=== PATIENT | female | born 1930 | race Hispanic/Latino ===

== ENCOUNTER → 2016-10-29 | Outpatient (CLI) | payer OTHER | LOC: MOB LAB 08:30 | DX: N39.0 Urinary tract infection, site not specified (principal); R30.0 Dysuria | CPT/HCPCS: 87077; 87088; 87186 ==

== ENCOUNTER 2016-12-21 21:18 | Emergency (ER) | payer OTHER ==
--- NOTE | 2016-12-21 21:33 | PDOC ---
Abdomen/Flank HPI - General Chief Complaint: Abdomen Pain Stated Complaint: N/V ABDOMINAL PAIN Date Seen by Provider: 12/21/16 Time Seen by Provider: 21:25 Source: POSITIVE: Patient Exam Limitations: POSITIVE: No limitations Nurse's Notes Reviewed & Considered: Yes - History of Present Illness Initial Comments: Pleasant slightly confused 86-year-old female who comes in today with a chief complaint of epigastric pain, nausea, and not feeling well. Patient is presently here in [facility]. She lives in [place] and has been here for approximately a month and a half. Yesterday she was normal and went for a long walk with a friend in the sun. Today she has had the above noted symptoms. She denies any headache, no sore throat, no chest pain or shortness of breath, no diarrhea, no hematuria or dysuria, no rashes. Her niece who accompanies her states that she is slightly confused. Body Location Affected: REPORTS: Abdomen Timing: REPORTS: Abrupt Duration: <24 hours Severity: Mild Quality: REPORTS: Aching, Cramping, "Pain" Abdominal Pain Onset Location: REPORTS: Epigastric Abdominal Pain Radiation: REPORTS: Periumbilical, Chest Context: REPORTS: None Modifying Factors: improves with: Nothing Associated Symptoms: REPORTS: Nausea, Vomiting Similar Symptoms Previously: No Recent Care Received: REPORTS: Denies Any Prior Injuries Related to Current Complaint?: No - Patient Home Medications Home Medications: Home Medications Aspirin [Aspir 81] 81 mg PO DAILY tab 10/29/16 Cholecalciferol (Vitamin D3) [Vitamin D3] 1 tab PO DAILY tab 10/29/16 Insulin Glargine Inj [Lantus Inj] 10 unit SUBCUT BEDTIME 10/29/16 Lisinopril 1 tab PO DAILY tab 10/29/16 Pantoprazole Sodium 1 tab PO DAILY tab 10/29/16 - Patient Allergies Allergies/Adverse Reactions: Allergies Allergy/AdvReac Type Severity Reaction Status Date / Time metformin Allergy HIVES Verified 12/21/16 21:32 ROS - Limitations ROS Limitations: No Limitations Constitution: REPORTS: Denies Symptoms Cardiovascular: REPORTS: Denies Cardiac Symptoms Respiratory: REPORTS: Denies Resp Symptoms Neurological: REPORTS: Confusion Gastrointestinal: REPORTS: Abdominal Pain, Nausea, Vomitting Endocrine: REPORTS: Denies Symptoms Musculoskeletal: REPORTS: Denies MS Symptoms Genitourinary: REPORTS: Denies Symptoms Eyes: REPORTS: Denies Symptoms ENT: REPORTS: Denies Symptoms Skin: REPORTS: Denies Skin Symptoms Lympathic: REPORTS: Denies Lympathic Symptoms Immunologic: POSITIVE: Denies Symptoms Psychiatric: POSITIVE: Denies Psych Symptoms Abdominal/Flank Pain PE - General Appearance General Appearance: POSITIVE: Alert, Cooperative, No Acute Distress, No Evidence of Trauma - HEENT HEENT: POSITIVE: Head Inspection Nml, Eyes Inspection Nml, Ears Inspection Nml, Nose Inspection Nml, Oral/Dental Inspect. Nml, Pharynx Inspect. Nml, PERRL, EOMI - Neck Neck: POSITIVE: Normal Inspection, No Apparent Injury - Respiratory Respiratory: POSITIVE: No Respiratory Distress, Breath Sounds Normal, Chest Non- Tender - Cardiovascular Cardiovascular: POSITIVE: Regular Rate and Rhythm, Heart Sounds Normal, Equal Pulses, Strong Pulses - Abdomen Abdomen: Soft: (All Quadrants), Normal Bowel Sounds: (All Quadrants), No Splenomegaly: (All Quadrants), No Hepatomegaly: (All Quadrants), No Guarding: ( All Quadrants), No Rebound: (All Quadrants), No Palpable Pulse: (All Quadrants) , No Palpabale Mass: (All Quadrants), No Distention: (All Quadrants), No Rigidity: (All Quadrants), Tenderness Noted: (LUQ), (RUQ) (epigastrium) - Back Back: POSITIVE: Normal Inspection - Skin Skin: POSITIVE: Intact, Normal For Race, Warm, Dry, No Rash - Extremities Extremity: Non-Tender: (All Extremities), Normal ROM: (All Extremities), Normal Inspection: (All Extremities) - Neurological Neurological: POSITIVE: Oriented X3, Motor Normal, Sensation Normal Abdomen Progress - Results Reviewed by me Xrays/CTs/US Reviewed by me: Yes Discussed with Radiologist: Yes Lab Results Reviewed: Yes Lab Results:: Laboratory Results 12/21/16 12/21/16 Range/Units 21:35 22:55 WBC 11.40 H (4.8-10.8) 10^3/uL RBC 3.63 L (4.20-5.40) 10^6/uL Hgb 11.1 L (12.0-16.0) g/dL Hct 31.8 L (37.0-47.0) % MCV 87.6 (81-99) FL MCH 30.6 (27-31) PG MCHC 34.9 (33-37) g/dL RDW Std Deviation 38.9 L (39-50) fL RDW Coeff of [place] 12.6 (11.5-14.5) % Plt Count 192 (140-350) 10*3/uL MPV 9.5 (7.4-12.2) FL Immature Gran % (Auto) 0.4 (0-5) % Neut % (Auto) 80.7 H (50-80) % Lymph % (Auto) 9.4 L (10-50) % [place] % (Auto) 8.1 (5-15) % Eos % (Auto) 1.0 (0-8) % Baso % (Auto) 0.4 (0-1) % Immature Gran # (Auto) 0.04 10*3/UL Neut # (Auto) 9.21 10*3/UL Lymph # (Auto) 1.07 10*3/uL [place] # (Auto) 0.92 H (0.3-0.8) 10*3/UL Eos # (Auto) 0.11 10*3/UL Baso # (Auto) 0.05 10*3/UL WBC Morphology Comment Normal morphology (NORM) Plt Morphology Comment Normal morphology (NORM) RBC Morph Comment Normal morphology (NORM) Sodium 131 L (135-145) meq/L Potassium 4.5 (3.8-5.2) meq/L Chloride 102 (98-112) meq/L Carbon Dioxide 20 L (23-33) meq/L Anion Gap 9 (5-20) BUN 18 (7-22) mg/dL Creatinine 0.8 (0.50-1.20) mg/dL Estimated GFR (>60 ml/min/1.73m(2)) BUN/Creatinine Ratio 22.50 H (6-20) Glucose 238 H (78-110) mg/dL Calculated Osmolality 281.0 (267-292) mOsm/kg Lactic Acid 1.5 (0.70-2.10) MMOL/L Calcium 8.9 (8.7-10.7) mg/dL Magnesium 1.6 (1.6-2.4) mg/dL Total Bilirubin 0.8 (0.3-1.2) mg/dL AST 27 (8-39) IU/L ALT 20 (9-52) IU/L Alkaline Phosphatase 194 H (38-126) IU/L Troponin I < 0.012 (< 0.040) ng/mL C-Reactive Protein 5.0 H (0.0-0.9) mg/dL Total Protein 7.4 (6.1-8.0) g/dL Albumin 3.4 L (3.5-4.8) g/dL Globulin 4.0 (2.50-4.10) g/dL Albumin/Globulin Ratio 0.80 L (1.3-2.0) mg/g Lipase 126 (23-300) IU/L Ur Collection Type Clean catch urine Urine Color Yellow Urine Clarity Slightly cloudy (CLEAR) Urine pH 5.0 (5.0-8.5) Ur Specific [place] 1.015 (1.005-1.030) U Specif Grav (Refrac) 1.015 Urine Protein Negative (NEG) mg/dl Urine Glucose (UA) Negative (NEG) mg/dL Urine Ketones Trace (NEG) Urine Occult Blood Small H (NEG) Urine Nitrate Negative (NEG) Urine Bilirubin Small (NEG) Urine Urobilinogen 0.2 (0.2) EU/dL Ur Leukocyte Esterase Moderate (NEG) Urine RBC 3-5 (NONE) /hpf Urine WBC 15-20 (NONE) Ur Squamous Epith Cells Few (NONE) Ur Renal Epithelial Cell None (NONE) Urine Crystals None Urine Bacteria Few (NONE) Urine Casts None (NONE) Urine Mucus Moderate (NONE) Urine Trichomonas None (NONE) Urine Yeast None (NONE) Ur Culture Indicated? Culture set Urine Opiates Screen Negative (NEG) Ur Buprenorphine Negative (NEG) Ur Oxycodone Screen Negative (NEG) Urine Methadone Screen Negative (NEG) Ur Propoxyphene Screen Negative (NEG) Barbiturate Screen Negative (NEG) U Tricyclic Antidepress Negative (NEG) Phencyclidine Screen Negative (NEG) Amphetamines Screen Negative (NEG) U Methamphetamines Scrn Negative (NEG) Benzodiazepines Screen Negative (NEG) Cocaine Screen Negative (NEG) U Marijuana (THC) Screen Negative (NEG) Serum Alcohol < 10 (0-10) mg/dL - Patient's Progress Pain Medication Addressed: POSITIVE: No Re-examine Time: 00:47 Status: POSITIVE: Improved MDM / ED Course: Patient was examined, IV started, blood drawn and sent to the lab for studies, radiographic examinations were obtained. Patient received normal saline, Rocephin. Findings: CBC shows elevation of her white count to 11, slight anemia with hemoglobin 11. Comprehensive metabolic panel shows sodium of 131. C Reactive protein is elevated at 5. Urinalysis shows leukocyte esterase present. Alcohol is negative. Drug screen is negative. Chest x-ray shows pleural effusion but no focal consolidated pneumonia. Assessment: Urinary tract infection. Plan: Discharge home, antibiotics prescribed his Keflex. She is to follow-up with her primary care physician. - Consult Counseled: POSITIVE: Patient, Family, RE: Lab Results, RE: Radiology Results, RE : DX, RE: Need for F/U Patient Care Time - Estimated PCT Patient Care Time (In Minutes): 45 Vital Signs - Recent Vital Signs Vital Signs: Vital Signs (Last 8 hours) Temp Pulse Resp BP Pulse Ox 12/21/16 21:20 98.6 F 90 18 124/90 95 - VS Reviewed Vital Signs Reviewed: Yes Discharge Clinical Impression: Urinary tract infection Discharge Disposition: Discharged to Home Condition: Stable Patient Instructions Given at Discharge: Urinary Tract Infection in Women (ED)
--- NOTE | 2016-12-21 21:42 | EKG ---
[address] [place] [address] Measurements Intervals [place] Rate: 87 P: 26 TX: 162 QRS: -58 QRSD: 89 T: 32 QT: 368 QTc: 412 Interpretive Statements SINUS RHYTHM LEFT ANTERIOR FASCICULAR BLOCK [QRS AXIS <= -45, QR IN I, RS IN II] WARNING: DATA QUALITY MAY AFFECT INTERPRETATION No previous ECG available for comparison Electronically Signed On 12-23-16 08:05:32 MDT by Joseph Gardiner MD [email or web address]
[2016-12-21 21:46] LABS: HEMATOCRIT 31.8 % (37.0-47.0); HEMOGLOBIN 11.1 g/dL (12.0-16.0); MEAN CORPUSCULAR VOLUME 87.6 FL (81-99); RED BLOOD COUNT 3.63 10^6/uL (4.20-5.40)
[2016-12-21 21:47] LABS: BASOPHILS # (AUTO) 0.05 10*3/UL; BASOPHILS % (AUTO) 0.4 % (0-1); EOSINOPHILS # (AUTO) 0.11 10*3/UL; LYMPHOCYTES # (AUTO) 1.07 10*3/uL; MEAN CORPUSCULAR HEMOGLOBIN 30.6 PG (27-31); MEAN CORPUSCULAR HGB CONC 34.9 g/dL (33-37); MEAN PLATELET VOLUME 9.5 FL (7.4-12.2); MONOCYTES # (AUTO) 0.92 10*3/UL (0.3-0.8); MONOCYTES % (AUTO) 8.1 % (5-15); NEUTROPHILS # (AUTO) 9.21 10*3/UL; NEUTROPHILS % (AUTO) 80.7 % (50-80); PLATELET MORPHOLOGY COMMENT NORMAL MORPHOLOGY (NORM); RBC MORPHOLOGY COMMENT NORMAL MORPHOLOGY (NORM); WBC MORPHOLOGY COMMENT NORMAL MORPHOLOGY (NORM)
[2016-12-21 21:48] VITALS: RESP 18; TEMP 98.6
[2016-12-21] MEDS: Sodium Chloride 0.9% 1,000 ML PRIMARY IV ONE (21:49)
[2016-12-21] MEDS: ONDANSETRON 4 MG/2 ML VIAL IVP ONE (21:50)
[2016-12-21 21:55] LABS: BLOOD UREA NITROGEN 18 mg/dL (7-22); CALCIUM 8.9 mg/dL (8.7-10.7); MAGNESIUM 1.6 mg/dL (1.6-2.4); SERUM ALBUMIN 3.4 g/dL (3.5-4.8)
[2016-12-21 22:59] LABS: BILIRUBIN,URINE SMALL (NEG); CLARITY,URINE Slightly Cloudy (CLEAR); COLOR,URINE YELLOW; GLUCOSE, URINE (UA) NEGATIVE (NEG); NITRATE,URINE NEGATIVE (NEG); OCCULT BLOOD,URINE SMALL (NEG); PROTEIN,URINE NEGATIVE (NEG); UROBILINOGEN,URINE 0.2 EU/dL (0.2)
[2016-12-21 23:05] LABS: BACTERIA,URINE FEW; SQUAMOUS EPITHELIAL CELL,UR FEW; URINE SAMPLE TYPE CLEAN CATCH URINE; URINE SPECIFIC GRAVITY - MAN 1.015; WBC,URINE 15-20
[2016-12-21 23:07] LABS: AMPHETAMINE SCREEN NEGATIVE (NEG); CANNABINOID SCREEN,URINE NEGATIVE (NEG); COCAINE SCREEN NEGATIVE (NEG); METHADONE URINE SCREEN NEGATIVE (NEG); METHAMPHETAMINES SCREEN,URINE NEGATIVE (NEG); OPIATE SCREEN,URINE NEGATIVE (NEG)
--- NOTE | 2016-12-22 00:33 | DI ---
-A single frontal view of the chest reveals clear lungs with no dense consolidation. There is a smal l right pleural effusion. There is no pneumothorax. The cardiomediastinal silhouette is within normal size limits with atheromatous calcifications in the arch of the tortuous thoracic aorta. -Flat and upright views of the abdomen reveal several air-fluid levels in the right upper quadrant w ith stool and gas in the distribution of the colon to the distal rectum. There are not dilated loops of bowel. No free intraperitoneal air is detected. This is a nonspecific bowel gas pattern. Additiona lly, tubular lucencies project over the right upper quadrant, most conspicuous on the upright imaging . Although this can be due to interposed bowel loops between the liver and the ventral abdominal wall , pneumobilia and portal venous gas can have a similar appearance. Dedicated advanced cross-sectional imaging is recommended if no priors are available for comparison. - There are no suspicious calcific densities in the distribution of the kidneys or renal or collectin g system. -There is diffuse demineralization of the osseous structures which limits evaluation of fine anatomi c detail. 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 There are degenerative changes of the bilate ral acromioclavicular, glenohumeral, and hip joints. - Coils from the mesh hernia repair project over the pelvis. Atheromatous calcifications are present in the vasculature. The soft tissues are unremarkable.
[2016-12-22] MEDS: cefTRIAXone Inj 1 GM in Sodium Chloride 0.9% 100 ML IV ONE (00:52)
== END 2016-12-22 01:25 | disposition home or self-care (01) ==
LOC: ER 21:18
DX: N39.0 Urinary tract infection, site not specified (principal); R11.2 Nausea with vomiting, unspecified; R10.33 Periumbilical pain; R10.13 Epigastric pain
CPT/HCPCS: 36415; 74022; 80053; 80305; 80320; 81001; 81003; 83605; 83690; 83735; 84484; 85025; 86140; 87077; 87088; 87185; 87186 ×2; 93005; 93010; 96365; 99283 ×2; J0696; J2405; 87040; J7030; J7050